=== PATIENT | male | born 2000 | race Caucasian/White ===

== ENCOUNTER 2020-02-13 20:00 | Emergency (ER) | payer OTHER ==
[~2020-02-13] VITALS: Ht 182.9 cm; Wt 99.8 kg
[2020-02-13 20:06] VITALS: BP_SYST 125
--- NOTE | 2020-02-13 20:06 | NUR ---
Patient to ER bed 7 for evaluation. Side rails up. Report given to Mahamed THIBODEAUX.
--- NOTE | 2020-02-13 20:33 | NUR ---
pt in [facility]. denies any severe pain, and is able to hear from affected left ear. "feels clogged"
--- NOTE | 2020-02-13 20:40 | NUR ---
ER at bedside examining patient.
[2020-02-13 20:56] VITALS: BP_SYST 125
== END 2020-02-13 21:29 | disposition left against medical advice (07) ==
LOC: SED 20:00
DX: H92.02 Otalgia, left ear (principal)
CPT/HCPCS: 99281